=== PATIENT | female | born 2000 | race Caucasian/White ===

== ENCOUNTER 2021-03-06 08:32 | Emergency (ER) | payer BC ==
[~2021-03-06] VITALS: Ht 172.7 cm; Wt 72.6 kg
[~2021-03-06 08:32] MED LIST: ARIP5TAB10 PO; MIRT-91 PO
--- NOTE | 2021-03-06 08:35 | NUR ---
Placed in room 5 . Placed on bus driver/monitor, blood pressure machine and pulse oximeter. To gown for exam. Side rails up. Report given to LOUISA Guzman.
--- NOTE | 2021-03-06 08:40 | NUR ---
DR DSOUZA IN TO ASSESS.
[2021-03-06 08:46] VITALS: BP_SYST 134
--- NOTE | 2021-03-06 08:55 | NUR ---
UPON TALKING WITH PT SHE EXPRESSED FEELING BETTER AND REQUESTED TO LEAVE. ALERT, RESP UNLABORED, COMMUNICATES CLEARLY IN FULL COMPLETE SENTECES. REFUSED TO SIGN AMA FORM, STEADY GAIT, WALKED OFF UNIT IN NO DISTRESS
[2021-03-06 08:56] LABS: BASOPHILS % (AUTO) 0.6 % (0.0-2.0); HEMATOCRIT 38.4 % (36-48); HEMOGLOBIN 13.6 g/dL (12.0-16.0); LYMPHOCYTES # (AUTO) 1.7 K/uL (1.0-5.5); LYMPHOCYTES % (AUTO) 26.7 % (20.5-51.5); MEAN CORPUSCULAR HEMOGLOBIN 31 pg (27-31); MEAN CORPUSCULAR HGB CONC 35 % (32-36); MEAN CORPUSCULAR VOLUME 89 fL (79.0-98.0); MONOCYTES # (AUTO) 0.4 K/uL (0.0-1.0); MONOCYTES % (AUTO) 6.7 % (1.7-9.3); NEUTROPHILS # (AUTO) 4.1 K/uL (1.8-7.7); PLATELET COUNT (AUTO) 216 K/uL (130-430); RED BLOOD CELL COUNT(AUTO) 4.34 MIL/uL (4.2-6.2); RED CELL DISTRIBUTION WIDTH 12.9 % (9.0-15.0); WHITE BLOOD COUNT (AUTO) 6.2 K/uL (4.8-10.8)
[2021-03-06 08:59] VITALS: BP_SYST 134
[2021-03-06 09:22] LABS: ANION GAP 13 (5-15); CALCIUM 9.4 mg/dL (8.4-11.0); CHLORIDE 101 mmol/L (98-107); GLUCOSE 121 mg/dL (70-99); POTASSIUM 3.6 mmol/L (3.5-5.1); SODIUM SERUM 138 mmol/L (136-145); UREA NITROGEN, BLOOD 13 mg/dL (8-21)
[2021-03-06 09:27] LABS: ALANINE AMINOTRANSFERASE 26 U/L (12-78); ALBUMIN 4.4 g/dL (3.4-4.8); ASPARTATE AMINOTRANSFERASE 19 U/L (10-37)
[2021-03-06 09:30] LABS: ALCOHOL, BLOOD < 3 mg/dL (<10); GFR AFRICAN AMERICAN 116 mL/min (>90)
[2021-03-06 09:33] LABS: ACETAMINOPHEN < 1 ug/mL (1-30)
[2021-03-06 09:46] LABS: VALPROIC ACID < 3 ug/mL (50-100)
== END 2021-03-06 08:59 | disposition left against medical advice (07) ==
LOC: SED 08:32
DX: T50.991A Poisoning by other drugs, medicaments and biological substances, accidental (unintentional), initial encounter (principal); F17.210 Nicotine dependence, cigarettes, uncomplicated; Z79.899 Other long term (current) drug therapy; Y92.89 Other specified places as the place of occurrence of the external cause
CPT/HCPCS: 36415; 80053; 80164; 85025; 99283; G0480; G0481; G0482